=== PATIENT | female | born 1995 | race Caucasian/White ===

== ENCOUNTER 2017-10-12 13:17 | Outpatient (CLI) | payer OTHER ==
[2017-10-12 14:42] LABS: BHCG - Serum Negative (NEGATIVE); Pregs Control Background? CLEAR/WHITE (CLR/WHITE); Pregs Control Bar Appear? YES (CONTROL BAR)
== END 2017-10-12 13:18 | disposition home or self-care (01) ==
LOC: LABBT 13:17
PROVIDERS: ATTEND Urology
DX: Z01.818 Encounter for other preprocedural examination (principal); N20.1 Calculus of ureter
CPT/HCPCS: 84703

== ENCOUNTER 2017-10-13 09:34 | Day surgery (SDC) | payer OTHER ==
[2017-10-12 14:00] VITALS: BMI 27.4
[2017-10-13] MEDS ORDERED: Midazolam HCl 2 mg/2 ml Vial ONE ×3 (11:04→12:52)
[2017-10-13] MEDS ORDERED: Levofloxacin 500 mg/D5W 100 ml Premix Bag ONE (11:04)
[2017-10-13] MEDS ORDERED: Fentanyl 100 MCG/2 ML VIAL ONE (12:52)
[2017-10-13] MEDS ORDERED: Iothalamate Meglumine 60% 50 ML VIAL FS ONE (12:53)
[2017-10-13 14:03] LABS: Bilirubin Negative (Negative); Blood, Urine Moderate (Negative); Clarity CLEAR (Clear); Glucose, Urine (Dipstick) Negative (Negative); Leukocyte Negative (Negative); Nitrite Negative (Negative); Protein, Urine (Dipstick) Negative (Neg-Trace); Specific Gravity, Urine 1.014 (1.002-1.036)
[2017-10-13 14:05] LABS: Bacteria/HPF None Seen HPF (None Seen); Hyaline Casts/LPF 0-3 HYALINE CAST LPF (0-3 Hyaline); Pathc Cast-AUWi Flag 0.27 (0-2.49); RBC/HPF 0-3 HPF (0-3); Squamous Epithelial 0-3 HPF (0-3); WBC/HPF 0-3 HPF (0-3)
--- NOTE | 2017-10-13 14:14 | RAD ---
RETROGRADE IVP: History: 22-year-old female for right stent placement. FINDINGS: Single spot film is presented for interpretation. No scouts film. There appears to be a small focal area of narrowing and possibly slight kinking of the right ureter a t the inferior SI joint region with a filling defect noted just above this, suspicious for the possib ility of a ureteral calculus. There is also a second questionable filling defect down near the ureter ovesicular junction which could conceivably just represent an air bubble. There is some dilatation of the incompletely filled right upper collecting system and upper ureter. IMPRESSION: Irregular filling defect measuring approximately 0.4 x 0.7 cm in the right ureter at the level of the inferior sacroiliac joint region with what appears to be some slightly irregular narrowing of the ur eter just caudal to this location. This is suspicious for a ureteral calculus. Small circumscribed qu estionable filling defect in the more distal right ureter, this could certainly represent a small air bubble. Minimal dilatation of an incompletely filled right upper ureter and upper collecting system. POS: [facility]
[2017-10-13] MEDS ORDERED: Metoclopramide HCl 10 MG/2 ML VIAL ONE (15:54)
[2017-10-13] MEDS ORDERED: Ondansetron HCl/PF 4 MG/2 ML Vial ONE (15:54)
[2017-10-13] MEDS ORDERED: Propofol 200 MG/20 ML VIAL ONE (15:54)
[2017-10-13] MEDS ORDERED: Dexamethasone 20 MG/5 ML VIAL ONE (15:54)
[2017-10-13] MEDS ORDERED: Lidocaine 1% PF 5 ML VIAL ONE (15:54)
[2017-10-13] MEDS ORDERED: diphenhydrAMINE 50 MG/ML VIAL ONE (15:54)
[2017-10-13] MEDS ORDERED: Ketorolac Tromethamine 30 MG/ML VIAL ONE (15:54)
--- NOTE | 2017-10-13 17:38 | OP ---
DATE OF PROCEDURE: 10/13/2017 PREOPERATIVE DIAGNOSIS: Right ureteral stone. POSTOPERATIVE DIAGNOSIS: Right ureteral stone. PROCEDURES: Cystoscopy, right retrograde pyelogram, insertion of right ureteral stent 6 x 26. SURGEON: Leticia Julio MD ANESTHESIA: General with laryngeal mask airway. FINDINGS: Adequate placement of a stent for her large mid right ureteral stone. SPECIMENS: Urine from the bladder. DRAIN: Remaining was 6 x 26 double-J internal. ESTIMATED BLOOD LOSS: None. COMPLICATIONS: None. INDICATIONS: The patient is a 22-year-old female, who was seen in the ER on 10/08/2017 and seen in t he office the next day and attempted to set up for an urgent stent placement to keep her out of the E R over the weekend and allow her kidney to have maximum drainage, but her insurance company denied th is and required at least a 72-hour waiting period to approve it, so we waits. Now, the patient retur ns for urgent stent placement with anticipated ureteroscopy to be performed in delayed fashion, so th at the ureter can dilate around the stent, making a large 1.3 cm stone more readily removed after lit hotripsy with less chance for ureteral injury. TECHNIQUE: The patient was brought to the room by Anesthesia, lying table in supine position. After receiving general anesthetic, her legs were placed in lithotomy position. Her perineum was prepped and draped in sterile fashion. Using a 22-Amharic cystoscope and 30 degree lens, urethra was traverse d and the bladder inspected. No lesions were noted. The right ureteral orifice was intubated after a wire aid at the insertion of the ureteral catheter. Retrograde pyelogram was performed and reviewi ng the filling defect in the mid ureter. The wire could not advance beyond it, but a Glidewire was a ble to advance beyond it up into the renal pelvis, then the catheter was advanced over the wire up in to the renal pelvis. Then, it was exchanged for a regular wire and a 6 x 26 double-J was placed with good coil visualized in the renal pelvis via fluoroscopy and a good coil visualized in the bladder v ia cystoscopy. The scope was broken apart, bladder drained and then removed in its entirety. The pa jacque tolerated procedure well and was then awakened and transferred to the PACU in stable condition.
== END 2017-10-13 15:45 | disposition home or self-care (01) ==
LOC: SDC 09:34
PROVIDERS: ATTEND Urology
PROC: 0T768DZ Dilation of Right Ureter with Intraluminal Device, Via Natural or Artificial Opening Endoscopic (ICD-10-PCS; principal; 2017-10-13)
DX: N20.1 Calculus of ureter (principal); G35 Multiple sclerosis; Z87.442 Personal history of urinary calculi
CPT/HCPCS: 74420; 81001; 87086; C1758; C1769; J0131; J1100; J1200; J1885; J1956; J2001; J2250; J2405; J2704; J2765; J3010; Q9961

== ENCOUNTER 2017-10-20 06:01 | Day surgery (SDC) | payer OTHER ==
[2017-10-19 12:43] VITALS: BMI 27.4
[2017-10-20] MEDS ORDERED: Fentanyl 100 MCG/2 ML VIAL ONE ×2 (06:56)
[2017-10-20] MEDS ORDERED: Midazolam HCl 2 mg/2 ml Vial ONE (06:56)
[2017-10-20] MEDS ORDERED: CEFAZOLIN 1 GM, Syringe 2.5 ML in Sterile Water 7.5 ML SLOW IVP SCH (07:00)
[2017-10-20] MEDS ORDERED: Iothalamate Meglumine 60% 50 ML VIAL FS ONE (07:13)
--- NOTE | 2017-10-20 08:20 | RAD ---
ABDOMEN ONE VIEW: History: Pre-operative. Comparison: Retrograde IVP, 10-13-17 FINDINGS: Right double J ureteral stent is in place in good position. Moderate stool burden. Along the right pelvic rim there appears to be a calculus measuring 4 mm in transverse x 11 mm in AP dimension. IMPRESSION: Right pelvic rim calculus within the ureter. POS: [facility]
--- NOTE | 2017-10-20 09:00 | RAD ---
RETROGRADE IVP: Comparison: 10-13-17 History: Ureteral calculus. FINDINGS/IMPRESSION: Limited intraoperative fluoroscopic views of the abdomen were submitted for interpretation. The patie nt has a double J ureteral stent. On the first image, there is a 1.0 cm calcification adjacent to the stem which likely represents a calcification in the mid right ureter. This is not seen on the subseq uent image. POS: [facility]
--- NOTE | 2017-10-20 10:45 | OP ---
DATE OF PROCEDURE: 10/20/2017 PREOPERATIVE DIAGNOSIS: Right ureteral stone. POSTOPERATIVE DIAGNOSIS: Right ureteral stone. PROCEDURE: Cystoscopy, right ureteroscopy, holmium laser lithotripsy, stone basketing, stent placement 6 x 26 with a string. SURGEON: Leticia Julio M.D. ANESTHESIA: General with laryngeal mask airway. FINDINGS: Adequate fragmentation of a large mid ureteral stone with all fragments extracted. SPECIMEN: Stone. BLOOD LOSS: None. COMPLICATIONS: None. DRAIN REMAININ x 26 double-J with string. INDICATIONS: The patient is a 22-year-old female who is seen acutely in the ER with an obstructing stone that was 1.3 cm in size, so was set up for urgent stent placement and now she presents for definitive stone management. TECHNIQUE: The patient was brought into the room by Anesthesia, laid on the table in supine position after receiving general anesthetic. Legs placed in lithotomy position. Her perineum was prepped and draped in sterile fashion. Using a 22-Panamanian cystoscope and a 30 degree lens, urethra was traversed in the bladder inspected. The stent was noticed and grasped with the instrument and brought out through the urethral meatus. Then, a wire was fed in the stent and the original stent was removed leaving the wire in place and then an attempt to intubate the orifice with the rigid ureteroscope was difficult due to inflammation, so a double barreled ureteral sheath was used to place a second wire and then the 11-13 Panamanian 28 cm ureteral sheath was placed over the second wire up to approximately 1 cm below the level of the stone in which case the extra wire was removed leaving the [address] wire and sheath in place and the rigid ureteroscope was used to go up to the level of the stone where a holmium laser lithotripsy was used to dust the stone in multiple fragments until it appeared to be sufficiently fragmented for removal. Then, a basket was used to get out all the fragments. There was one fragment that still remained that was too large, so that the laser fiber was used to again 2 more times to fragment this up into small enough pieces that could be grasped. Then, a final pass up to the proximal ureter and down revealed only small fragments remaining and no significant stone in the ureter at this time. The ureteral sheath was removed and the cystoscope was back fed over the safety wire. A 6 x 26 double-J was placed. A good coil was visualized in the renal pelvis via fluoroscopy and a good coil visualized in the bladder via cystoscopy. The string remained on so the scope was broken apart, bladder drained and removed carefully leaving the string intact, which was then secured to the patient's inner thigh. The patient tolerated the procedure well and was then awakened and transferred to PACU in stable condition. SANDR[facility]
[2017-10-20] MEDS ORDERED: Lidocaine 1% PF 5 ML VIAL ONE (14:14)
[2017-10-20] MEDS ORDERED: Ondansetron HCl/PF 4 MG/2 ML Vial ONE (14:14)
[2017-10-20] MEDS ORDERED: Propofol 200 MG/20 ML VIAL ONE (14:14)
== END 2017-10-20 10:55 | disposition home or self-care (01) ==
LOC: SDC 06:01
PROVIDERS: ATTEND Urology
DX: N20.1 Calculus of ureter (principal); G35 Multiple sclerosis
CPT/HCPCS: 74018; 74420; 82365; 88300; A4216; C1758; C2625; J0690; J2001; J2250; J2405; J2704; J3010; Q9961